=== PATIENT | male | born 1975 | race Caucasian/White ===

== ENCOUNTER 2018-10-02 16:35 | Emergency (ER) | payer SELFPAY ==
[~2018-10-02] VITALS: Ht 180.3 cm; Wt 71.0 kg
[~2018-10-02 16:35] MED LIST: ALBU1.25 NEB; ALBU6.7H IH; AZIT250T6 PO; CLON-276 PO; HYDR-3165 PO; ONDA4TAB10 SL; OXYC10TA PO; PRED20TA PO; VARE1TAB20 PO
[2018-10-02 17:12] VITALS: BP 134/74
--- NOTE | 2018-10-02 18:01 | ED.ADGEN ---
Past History Past Medical History: No Pertinent History, Other Past Surgical History: No Surgical History Smoking: Cigarettes Alcohol Use: Rarely Drug Use: Amphetamine, Heroin, Marijuana, Methamphetamine, Opiates Adult General Chief Complaint Chief Complaint ".. I ve been shooting up heroin.. and I got this infection in my Lt arm... I tried draining it.. but it gotten worse the last three days..." HPI HPI Patient is a 43 year old male who presents with abscess and cellulitis after shooting up heroin. Patient has a 2 x 2 abscess of left antecubital space with surrounding cellulitis 4 x 4 cm with striations of medial side of left arm. Some small adenopathy at antecubital space on left. Patient does not know his last tetanus vaccination. Patient denies any history of immunosuppression or HIV. 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 Patient has had previous polysubstance abuse. No recent travel or specific ill contacts. Patient is right-hand dominant. Distal left hand neurovascular intact. Does have findings of multiple other track acosta scarring from previous IV injections. Review of Systems Review of Systems Constitutional: Denies fever or chills [] Eyes: Denies change in visual acuity, redness, or eye pain [] HENT: Denies nasal congestion or sore throat [] Respiratory: Denies cough or shortness of breath [] Cardiovascular: No additional information not addressed in HPI [] GI: Denies abdominal pain, nausea, vomiting, bloody stools or diarrhea [] : Denies dysuria or hematuria [] Musculoskeletal: Denies back pain or joint pain [] Integument: Denies rash or skin lesions []complaints of left antecubital space cellulitis and abscess Neurologic: Denies headache, focal weakness or sensory changes [] Endocrine: Denies polyuria or polydipsia [] All other systems were reviewed and found to be within normal limits, except as documented in this note. Family History Family History Noncontributory Current Medications Current Medications Current Medications Medications (Trade) Dose Ordered Sig/Mercedes Start Time Stop Time Status Last Admin Dose Admin Ceftriaxone Sodium (Rocephin Im) 1 gm 1X ONCE 10/02/18 18:00 10/02/18 18:01 DC 10/02/18 18:33 1 GM Diphtheria/ Tetanus/Acell Pertussis (Boostrix) 0.5 ml ONCE ONCE 10/02/18 18:00 10/02/18 18:01 DC 10/02/18 18:34 0.5 ML Doxycycline Hyclate (Vibra-Tab) 100 mg 1X ONCE 10/02/18 18:00 10/02/18 18:01 DC 10/02/18 18:33 100 MG Allergies Allergies Allergies Coded Allergies Type Severity Reaction Last Updated Verified Sulfa (Sulfonamide Antibiotics) Allergy Intermediate 08/25/16 Yes hydrocodone Allergy Intermediate gi upset 08/25/16 Yes morphine Allergy Intermediate gi upset 08/25/16 Yes Physical Exam Physical Exam Constitutional: Moderately acute distress, non-toxic appearance. [] HENT: Normocephalic, atraumatic, bilateral external ears normal, oropharynx moist, no oral exudates, nose normal. [] Eyes: PERRLA, EOMI, conjunctiva normal, no discharge. [] Neck: Normal range of motion, no tenderness, supple, no stridor. [] Cardiovascular:Heart rate regular rhythm, no murmur [] Lungs & Thorax: Bilateral breath sounds equal at apex with few scattered wheezes on auscultation [] Abdomen: Bowel sounds normal, soft, no tenderness, no masses, no pulsatile masses. [] Skin: Warm, dry, no erythema, no rash. Findings of left antecubital abscess and cellulitis Back: No tenderness, no CVA tenderness. [] Extremities: No tenderness, no cyanosis, no clubbing, ROM intact, no edema. [] Except left arm tenderness as per history of present illness area cellulitis. Neurologic: Alert and oriented X 3, normal motor function, normal sensory function, no focal deficits noted. [] Psychologic: Affect normal, judgement normal, mood normal. [] Current Patient Data Vital Signs Vital Signs Date Time Temp Pulse Resp B/P (MAP) Pulse Ox O2 Delivery O2 Flow Rate FiO2 10/02/18 17:12 99.0 78 20 96 Room Air Lab Results Laboratory Tests Test 10/02/18 18:12 10/02/18 18:47 White Blood Count 8.6 x10^3/uL (4.0-11.0) Red Blood Count 5.62 x10^6/uL (4.30-5.70) Hemoglobin 16.6 g/dL (13.0-17.5) Hematocrit 48.1 % (39.0-53.0) Mean Corpuscular Volume 86 fL (79-100) Mean Corpuscular Hemoglobin 30 pg (25-35) Mean Corpuscular Hemoglobin Concent 35 g/dL (31-37) Red Cell Distribution Width 14.3 % (11.5-14.5) Platelet Count 277 x10^3/uL (140-400) Neutrophils (%) (Auto) 84 % (31-73) H Lymphocytes (%) (Auto) 7 % (24-48) L Monocytes (%) (Auto) 6 % (0-9) Eosinophils (%) (Auto) 3 % (0-3) Basophils (%) (Auto) 1 % (0-3) Neutrophils # (Auto) 7.2 x10^3uL (1.8-7.7) Lymphocytes # (Auto) 0.6 x10^3/uL (1.0-4.8) L Monocytes # (Auto) 0.6 x10^3/uL (0.0-1.1) Eosinophils # (Auto) 0.2 x10^3/uL (0.0-0.7) Basophils # (Auto) 0.1 x10^3/uL (0.0-0.2) Sodium Level 133 mmol/L (136-145) L Potassium Level 3.4 mmol/L (3.5-5.1) L Chloride Level 95 mmol/L (98-107) L Carbon Dioxide Level 31 mmol/L (21-32) Anion Gap 7 (6-14) Blood Urea Nitrogen 9 mg/dL (8-26) Creatinine 0.8 mg/dL (0.7-1.3) Estimated GFR (Cockcroft-Gault) 106.0 BUN/Creatinine Ratio 11 (6-20) Glucose Level 133 mg/dL (70-99) H Calcium Level 8.1 mg/dL (8.5-10.1) L Total Bilirubin 0.4 mg/dL (0.2-1.0) Aspartate Amino Transferase (AST) 32 U/L (15-37) Alanine Aminotransferase (ALT) 26 U/L (16-63) Alkaline Phosphatase 125 U/L (46-116) H Total Protein 6.9 g/dL (6.4-8.2) Albumin 2.6 g/dL (3.4-5.0) L Albumin/Globulin Ratio 0.6 (1.0-1.7) L EKG EKG [] Radiology/Procedures Radiology/Procedures My interpretation x-ray shows no obvious fracture or dislocation. Does have findings of edema and tissue defect at abscess site.[] Course & Med Decision Making Course & Med Decision Making Pertinent Labs and Imaging studies reviewed. (See chart for details) Procedure note- abscess area prepped with Betadine and incised with 11 blade with return pus. Explored abscess area with Winnie's to break up any loculations . Short 1 inch piece of packing placed in place with dressing. Pt. to keep area clean and dry. May leave current dressing in place today, but if soaks through may replace or re-enforce. Packing must come out within 3 days. Follow-up primary care. Patient given list of referral areas for outpatient drug rehabilitation. Per His request. Patient take doxycycline milligrams twice a day. Patient return if any concerns. Patient encouraged to get follow-up HIV testing and hepatitis testing. If no improvement may require hospital admission for IV antibiotics. [] Final Impression Final Impression 1. Abscess/ Cellulitis[] 2. History of IV drug use Dragon Disclaimer Dragon Disclaimer This electronic medical record was generated, in whole or in part, using a voice recognition dictation system. CASSIUS MCCORMICK MD Oct 02, 2018 18:00
[2018-10-02 18:28] LABS: BASO # 0.1 x10^3/uL (0.0-0.2); BASO % 1 % (0-3); EOS # 0.2 x10^3/uL (0.0-0.7); EOS % 3 % (0-3); HEMATOCRIT 48.1 % (39.0-53.0); HEMOGLOBIN 16.6 g/dL (13.0-17.5); LYMPH # 0.6 x10^3/uL (1.0-4.8); LYMPH % 7 % (24-48); MEAN CORPUSCULAR HEMOGLOBIN 30 pg (25-35); MEAN CORPUSCULAR HGB CONC 35 g/dL (31-37); MEAN CORPUSCULAR VOLUME 86 fL (79-100); MONO # 0.6 x10^3/uL (0.0-1.1); MONO % 6 % (0-9); NEUT # 7.2 x10^3uL (1.8-7.7); NEUT % 84 % (31-73); PLATELET COUNT 277 x10^3/uL (140-400); RED BLOOD COUNT 5.62 x10^6/uL (4.30-5.70); RED CELL DISTRIBUTION WIDTH 14.3 % (11.5-14.5); WHITE BLOOD COUNT 8.6 x10^3/uL (4.0-11.0)
[2018-10-02] MEDS: cefTRIAXone IM 1 GM VIAL IM ONE (18:33)
[2018-10-02] MEDS: DOXYCYCLINE HYCLATE 100 MG TABLET PO ONE (18:33)
[2018-10-02] MEDS: DIPHTH,PERTUSS(ACELL),TET TOX 0.5 ML DISP.SYRIN. VAX IM ONE (18:34)
[2018-10-02] MEDS ORDERED: DOXY100T9 PO (18:44)
[2018-10-02 19:21] LABS: ALBUMIN 2.6 g/dL (3.4-5.0); ALBUMIN/GLOBULIN RATIO 0.6 (1.0-1.7); CALCIUM 8.1 mg/dL (8.5-10.1); CREATININE 0.8 mg/dL (0.7-1.3); POTASSIUM 3.4 mmol/L (3.5-5.1); TOTAL BILIRUBIN 0.4 mg/dL (0.2-1.0); TOTAL PROTEIN 6.9 g/dL (6.4-8.2)
--- NOTE | 2018-10-02 22:05 | RAD ---
3 views left elbow HISTORY: Abscess to left elbow infected heroin injection site AP lateral oblique views The visualized osseous structures appear normal. There is no displacement of the fat pad. IMPRESSION: No bony abnormality identified. Electronically signed by: Zachary Rodriguez III, MD (10/02/2018 10:02 PM) [facility]
== END 2018-10-02 19:05 | disposition home or self-care (01) ==
LOC: ER 16:35
DX: L03.114 Cellulitis of left upper limb (principal); L02.414 Cutaneous abscess of left upper limb; F15.10 Other stimulant abuse, uncomplicated; F14.10 Cocaine abuse, uncomplicated; F11.20 Opioid dependence, uncomplicated; F19.10 Other psychoactive substance abuse, uncomplicated; F17.210 Nicotine dependence, cigarettes, uncomplicated; Z88.2 Allergy status to sulfonamides; Z88.5 Allergy status to narcotic agent
CPT/HCPCS: 10060; 36415; 73080; 80053; 85025; 87040; 90471; 90715; 96372; 99284; J0696

== ENCOUNTER 2018-10-03 05:32 | Inpatient (IN) | payer SELFPAY ==
[~2018-10-03] VITALS: Ht 177.8 cm; Wt 84.4 kg
[~2018-10-03 05:32] MED LIST changes: +DOXY100T9 PO
--- NOTE | 2018-10-03 05:41 | ED.ADGEN ---
Past History Past Medical History: No Pertinent History, Abscess, Bronchitis, Other Past Surgical History: No Surgical History, Other Smoking: Cigarettes Alcohol Use: Rarely Drug Use: Amphetamine, Heroin, Marijuana, Methamphetamine, Opiates Adult General Chief Complaint Chief Complaint ".. Went home from here.. and I just rested.. but I am really short of breath.. this morning...some chest discomfort.. and my Lt arm is more swollen and sore...." HPI HPI Patient is a 43 year old male who presents with above hx and complaints of increase pain Lt. arm cellulitis with chest pain. Pt. seen yesterday and received I and D of Lt.arm abscess. Area of cellulitis has not improved and appears to have increased edema to Lt upper arm. Pt. was noted to have new needle acosta on right arm. Patient denies any new illicit drug use however. Patient does complain of some increased wheezing and shortness of breath. Complaints of some nonspecific central chest pain that is nonradiating. Patient does have increased diaphoresis and findings of fever and chills. Patient does state he's had some increased coughing. Patient does have a history of polysubstance abuse. Has been using IV heroin. Patient Review of Systems Review of Systems Constitutional: History of fever or chills [] Eyes: Denies change in visual acuity, redness, or eye pain [] HENT: Denies nasal congestion or sore throat [] Respiratory: History of cough and wheezing Cardiovascular: No additional information not addressed in HPI [] GI: Denies abdominal pain, nausea, vomiting, bloody stools or diarrhea [] : Denies dysuria or hematuria [] Musculoskeletal: Denies back pain or joint pain [] Integument: Complaints of left arm cellulitis and abscess Neurologic: Denies headache, focal weakness or sensory changes [] Endocrine: Denies polyuria or polydipsia [] All other systems were reviewed and found to be within normal limits, except as documented in this note. Family History Family History Noncontributory Current Medications Current Medications Current Medications Medications (Trade) Dose Ordered Sig/Mercedes Start Time Stop Time Status Last Admin Dose Admin Acetaminophen (Tylenol) 1,000 mg QIDPRN PRN 10/03/18 06:00 Albuterol/ Ipratropium (Duoneb) 3 ml STK-MED ONCE 10/03/18 06:00 10/03/18 06:01 DC Aspirin (Children'S Aspirin) 324 mg 1X ONCE 10/03/18 06:00 10/03/18 06:01 DC 10/03/18 06:14 324 MG Ceftriaxone Sodium 1 gm/ Sodium Chloride 50 ml @ 100 mls/hr 1X ONCE 10/03/18 06:00 10/03/18 06:29 DC 10/03/18 06:46 100 MLS/HR Enoxaparin Sodium (Lovenox 80mg Syringe) 80 mg 1X ONCE 10/03/18 06:00 10/03/18 06:01 DC 10/03/18 06:18 80 MG Lactated Ringer's 1,000 ml @ 160 mls/hr Q6H15M 10/03/18 06:00 10/03/18 06:00 160 MLS/HR Multivitamins/ Minerals 10 ml/ Folic Acid 1 mg/ Thiamine HCl 100 mg/Lactated Ringer's 1,011.2 ml @ 1,000 mls/ hr 1X ONCE 10/03/18 06:00 10/03/18 07:00 DC 10/03/18 06:14 1,000 MLS/HR Ondansetron HCl (Zofran) 4 mg PRN Q4HRS PRN 10/03/18 06:00 10/04/18 05:59 10/03/18 06:14 4 MG Vancomycin HCl (Vanco Per Pharmacy) 1 each PRN DAILY PRN 10/03/18 06:00 10/03/18 06:12 1 EACH Allergies Allergies Allergies Coded Allergies Type Severity Reaction Last Updated Verified Sulfa (Sulfonamide Antibiotics) Allergy Intermediate 08/25/16 Yes hydrocodone Allergy Intermediate gi upset 08/25/16 Yes morphine Allergy Intermediate gi upset 08/25/16 Yes Physical Exam Physical Exam Constitutional: Moderately acute distress, appears to be under the influence of a narcotic . HENT: Normocephalic, atraumatic, bilateral external ears normal, oropharynx moist, no oral exudates, nose normal. [] Eyes: PERRLA, EOMI, conjunctiva normal, no discharge. [] Neck: Normal range of motion, no tenderness, supple, no stridor. [] Cardiovascular: Regular Heart rate regular rhythm, no murmur appreciable Lungs & Thorax: Bilateral breath sounds equal at apex with scattered wheezes on auscultation [] Abdomen: Bowel sounds decreased,, soft, no tenderness, no masses, no pulsatile masses. [] Skin: Left arm is more erythemic and swollen and then yesterday. Packing is still in place from prior incision and drainage. New Needle acosta on right arm Back: No tenderness, no CVA tenderness. [] Extremities: No tenderness, no cyanosis, no clubbing, ROM intact, left arm edema. [] Neurologic: Alert and oriented X 3, normal motor function, normal sensory function, no focal deficits noted. []Except in Lt. arm decreased movement at elbow because of cellulitis and inflammation. No distal sensation loss in fingers. Psychologic: Affect anxious, judgement normal, mood normal. [] Current Patient Data Vital Signs Vital Signs Date Time Temp Pulse Resp B/P (MAP) Pulse Ox O2 Delivery O2 Flow Rate FiO2 10/03/18 05:39 100.8 83 20 97 Room Air Lab Results Laboratory Tests Test 10/03/18 05:57 White Blood Count 9.2 x10^3/uL (4.0-11.0) Red Blood Count 4.58 x10^6/uL (4.30-5.70) Hemoglobin 13.5 g/dL (13.0-17.5) Hematocrit 38.5 % (39.0-53.0) L Mean Corpuscular Volume 84 fL (79-100) Mean Corpuscular Hemoglobin 30 pg (25-35) Mean Corpuscular Hemoglobin Concent 35 g/dL (31-37) Red Cell Distribution Width 14.0 % (11.5-14.5) Platelet Count 271 x10^3/uL (140-400) Neutrophils (%) (Auto) 78 % (31-73) H Lymphocytes (%) (Auto) 9 % (24-48) L Monocytes (%) (Auto) 10 % (0-9) H Eosinophils (%) (Auto) 2 % (0-3) Basophils (%) (Auto) 1 % (0-3) Neutrophils # (Auto) 7.2 x10^3uL (1.8-7.7) Lymphocytes # (Auto) 0.8 x10^3/uL (1.0-4.8) L Monocytes # (Auto) 1.0 x10^3/uL (0.0-1.1) Eosinophils # (Auto) 0.2 x10^3/uL (0.0-0.7) Basophils # (Auto) 0.1 x10^3/uL (0.0-0.2) Segmented Neutrophils % 70 % (35-66) H Band Neutrophils % 7 % (0-9) Lymphocytes % 10 % (24-48) L Monocytes % 11 % (0-10) H Eosinophils % 2 % (0-5) Platelet Estimate Adequate (ADEQUATE) Prothrombin Time 10.8 SEC (9.4-11.4) Prothrombin Time INR 1.1 (0.9-1.1) PTT 34 SEC (23-33) H Sodium Level 132 mmol/L (136-145) L Potassium Level 2.9 mmol/L (3.5-5.1) *L Chloride Level 95 mmol/L (98-107) L Carbon Dioxide Level 27 mmol/L (21-32) Anion Gap 10 (6-14) Blood Urea Nitrogen 7 mg/dL (8-26) L Creatinine 0.8 mg/dL (0.7-1.3) Estimated GFR (Cockcroft-Gault) 106.0 Glucose Level 126 mg/dL (70-99) H Lactic Acid Level 1.3 mmol/L (0.4-2.0) Calcium Level 8.1 mg/dL (8.5-10.1) L Magnesium Level 1.9 mg/dL (1.8-2.4) Total Bilirubin 0.4 mg/dL (0.2-1.0) Direct Bilirubin 0.1 mg/dL (0.0-0.2) Aspartate Amino Transferase (AST) 33 U/L (15-37) Alanine Aminotransferase (ALT) 33 U/L (16-63) Alkaline Phosphatase 161 U/L (46-116) H Creatine Kinase 65 U/L (39-308) Troponin I Quantitative < 0.017 ng/mL (0-0.055) [id number]-Type Natriuretic Peptide 260 pg/mL (0-124) H Total Protein 7.2 g/dL (6.4-8.2) Albumin 2.7 g/dL (3.4-5.0) L Lipase 90 U/L (73-393) EKG EKG My interpretation of EKG shows a sinus rhythm at 76 bpm. No findings of acute morphology. No findings acute STEMI with contralateral changes.[] Radiology/Procedures Radiology/Procedures My interpretation of chest x-ray shows no acute cardiopulmonary findings.[] Course & Med Decision Making Course & Med Decision Making Pertinent Labs and Imaging studies reviewed. (See chart for details) Discussed presentation, testing and treatment plan with Dr. Bedolla. US pending Lt upper arm. Echo ordered. Cardiology consult Dr. Blount [] Final Impression Final Impression 1. Dyspnea 2. Cellulitis and Abscess- I and D yesterday 3. Hx. Polysubstance Abuse- heroin IV use[] 4. Hypokalemia 2.9 5. Malnutrition alb. 2.7 6. Dyspnea 7. Chest pain Dragon Disclaimer Dragon Disclaimer This electronic medical record was generated, in whole or in part, using a voice recognition dictation system. CASSIUS MCCORMICK MD Oct 03, 2018 05:41
[2018-10-03] MEDS ORDERED: ENOXAPARIN ** NOTE DOSE ** SYRINGE SQ ONE (06:00)
[2018-10-03] MEDS ORDERED: MVI, ADULT NO.4 WITH VIT K 10 ML, FOLIC ACID SYRINGE for ER 1 MG, THIAMINE INJ 100 MG i... IV ONE ×4 (06:00)
[2018-10-03] MEDS ORDERED: IV RINGERS SOLUTION,LACTATED 1,000 ML IV SCH (06:00)
[2018-10-03] MEDS ORDERED: IPRATRPIUM/ALBUTEROL 0.5/2.5MG 3 ML NEBU. ONE (06:00)
[2018-10-03] MEDS ORDERED: ONDANSETRON PF 4 MG/2 ML VIAL. IV PRN (06:00)
[2018-10-03] MEDS: IV RINGERS SOLUTION,LACTATED 1,000 ML IV SCH ×2 (06:00→09:24)
[2018-10-03] MEDS ORDERED: ASPIRIN 81 MG TAB.CHEW PO ONE (06:00)
[2018-10-03] MEDS ORDERED: ACETAMINOPHEN 500 MG TABLET PO PRN (06:00)
[2018-10-03] MEDS ORDERED: ACETAMINOPHEN 500 MG TABLET PO ONE (06:00)
[2018-10-03] MEDS ORDERED: IV NORMAL SALINE 50ML 50 ML ONE (06:05)
[2018-10-03] MEDS ORDERED: MVI, ADULT NO.4 WITH VIT K 10 ML VIAL IV ONE (06:06)
[2018-10-03] MEDS ORDERED: cefTRIAXone SODIUM 1 GM VIAL IV ONE (06:06)
[2018-10-03] MEDS ORDERED: FOLIC ACID 5 MG/ML SYRINGE for ER IV ONE (06:06)
[2018-10-03] MEDS ORDERED: THIAMINE 200 MG/2 ML VIAL. IV ONE (06:06)
[2018-10-03] MEDS: IPRATRPIUM/ALBUTEROL 0.5/2.5MG 3 ML NEBU. NEB SCH ×4 (06:10→20:00)
[2018-10-03] MEDS: VANCOMYCIN PER PHARMACY MC PRN (06:12)
[2018-10-03] MEDS ORDERED: ANTI-COAG MONITOR BY PHARMACY. MC PRN (06:15)
--- NOTE | 2018-10-03 06:17 | RAD ---
AP portable chest radiograph 10/03/2018 Clinical History: Chest pain. Two AP erect portable digital radiographs of the chest were obtained. Comparison study is dated 08/16/2016. The cardiac and mediastinal silhouettes are within normal limits in size and configuration. No acute pulmonary infiltrate is seen. No pleural effusion or pneumothorax is noted. The osseous structures are grossly intact. Impression: No acute abnormality is seen. Electronically signed by: Denton Preciado MD (10/03/2018 6:13 AM) [id number]
[2018-10-03 06:24] LABS: BASO # 0.1 x10^3/uL (0.0-0.2); BASO % 1 % (0-3); EOS # 0.2 x10^3/uL (0.0-0.7); EOS % 2 % (0-3); HEMATOCRIT 38.5 % (39.0-53.0); HEMOGLOBIN 13.5 g/dL (13.0-17.5); LYMPH # 0.8 x10^3/uL (1.0-4.8); LYMPH % 9 % (24-48); MEAN CORPUSCULAR HEMOGLOBIN 30 pg (25-35); MEAN CORPUSCULAR HGB CONC 35 g/dL (31-37); MEAN CORPUSCULAR VOLUME 84 fL (79-100); MONO % 10 % (0-9); NEUT # 7.2 x10^3uL (1.8-7.7); NEUT % 78 % (31-73); PLATELET COUNT 271 x10^3/uL (140-400); RED BLOOD COUNT 4.58 x10^6/uL (4.30-5.70); WHITE BLOOD COUNT 9.2 x10^3/uL (4.0-11.0)
[2018-10-03] MEDS ORDERED: VANCOMYCIN 1.75 GM in IV NORMAL SALINE 500ML 500 ML IV ONE (06:30)
[2018-10-03 06:37] LABS: ALBUMIN 2.7 g/dL (3.4-5.0); CALCIUM 8.1 mg/dL (8.5-10.1); CREATININE 0.8 mg/dL (0.7-1.3); DIRECT BILIRUBIN 0.1 mg/dL (0.0-0.2); MAGNESIUM 1.9 mg/dL (1.8-2.4); TOTAL BILIRUBIN 0.4 mg/dL (0.2-1.0); TOTAL PROTEIN 7.2 g/dL (6.4-8.2)
[2018-10-03 06:39] LABS: POTASSIUM 2.9 mmol/L (3.5-5.1)
[2018-10-03] MEDS ORDERED: POTASSIUM CHLORIDE 20 MEQ/15 ML ORAL LIQUID. PO ONE (07:00)
--- NOTE | 2018-10-03 07:04 | EKG ---
[address] [address] Test Date: 2018-10-03 Test Time: 06:06:42 Pat Name: KENNY OCAMPO Department: Room: Gender: Trade Embalmer: : [id number] Requested By: CASSIUS MCCORMICK Order Number: [id number] Reading MD: Randy Guaman Measurements Intervals [place] Rate: 76 P: 46 CA: 158 QRS: 54 QRSD: 92 T: 42 QT: 382 QTc: 434 Interpretive Statements SINUS RHYTHM NORMAL ECG RI6.01 Unconfirmed report Compared to ECG 08/25/2016 08:54:43 No significant changes Electronically Signed On 10-04-2018 9:35:18 [employer] by Randy Guaman
[2018-10-03] MEDS ORDERED: IV NORMAL SALINE 500ML 500 ML ONE (07:17)
[2018-10-03] MEDS ORDERED: VANCOMYCIN 1 GM VIAL. ONE (07:18)
[2018-10-03 07:37] LABS: BILIRUBIN,URINE NEG (NEG); CLARITY,URINE CLEAR; COLOR,URINE AMBER; GLUCOSE,URINE NEG (NEG)
[2018-10-03 07:38] LABS: BACTERIA,URINE 0 /HPF (0-FEW); BARBITURATES NEG (NEG); BENZODIAZEPINES NEG (NEG); CANNABINOIDS NEG (NEG); COCAINE NEG (NEG); METHADONE NEG (NEG); NITRITE,URINE NEG (NEG); OPIATES POS (NEG); PHENCYCLIDINE NEG (NEG); RBC,URINE 0 /HPF (0-2); SQUAMOUS EPITHELIAL CELL,UR OCC /LPF; UROBILINOGEN,URINE 1 mg/dL (0.2 mg/dL); WBC,URINE 0 /HPF (0-4)
[2018-10-03 07:41] LABS: AMPHETAMINE/METHAMPHETAMINE NEG (NEG)
[2018-10-03 08:11] LABS: % BANDS 7 % (0-9); % EOS 2 % (0-5); % LYMPHS 10 % (24-48); % MONOS 11 % (0-10); % SEGS 70 % (35-66); PLT ESTIMATE ADEQUATE (ADEQUATE)
[2018-10-03 08:18] VITALS: BP 119/74
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
[2018-10-03 10:57] VITALS: BP 103/63
[2018-10-03] MEDS ORDERED: IOHEXOL 300 MG/ML 50 ML VIAL. IV ONE (11:00)
[2018-10-03] MEDS: POTASSIUM CL 40MEQ IN 0.9%NACL 1,000 ML IV SCH ×2 (11:00→21:32)
[2018-10-03] MEDS ORDERED: IOHEXOL 300 MG/ML 75 ML VIAL. IV ONE (11:00)
--- NOTE | 2018-10-03 11:14 | HP ---
ADMIT DATE: 10/03/2018 HISTORY OF PRESENT ILLNESS: The patient is a 43-year-old male patient who came to the Emergency Room complaining of shortness of breath and chest discomfort and pain and swelling in his left arm. He apparently was seen yesterday and has had incision and drainage of left arm abscess. The area of cellulitis has not improved and in fact the edema of the left arm has increased. He was noted to have a new needle acosta on his right arm. He denied any illicit drug use. However, the patient does complain of some increased wheezing and shortness of breath. Complained of some nonspecific central chest pain and he has increased diaphoresis and finding of fever and chills. The patient does state that he had some increased coughing. He apparently has history of polysubstance abuse and has been using IV heroin. He was evaluated in the Emergency Room again this morning. His lab work showed his white cell count to be 9000. His chemistry showed that he has hypokalemia and D-dimer was high at 2.7. His urinalysis was essentially unremarkable and toxic screen was positive for opiates, negative for other medication. He was admitted with cellulitis of the left upper extremity and was started on IV Zosyn and vancomycin. Given his elevated D-dimer, he was started on Lovenox 1 mg per kg twice a day. PAST MEDICAL HISTORY: Significant for COPD and history of pneumonia in 2013. FAMILY HISTORY: Unremarkable. SOCIAL HISTORY: He apparently continued to smoke cigarettes. He smokes about one half pack a day. He is unemployed. He is currently not working. REVIEW OF SYSTEMS: As per history of present illness. PHYSICAL EXAMINATION: GENERAL: On arrival to the Emergency Room, he was slightly tachypneic, lethargic, pale, but no jaundice, cyanosis, or thyromegaly. No jugular venous distension. No limb edema. VITAL SIGNS: His heart rate was 83, blood pressure was 114/55, temperature was 100.8, respiratory rate 20, and oxygen saturation was 97%. HEAD, EYES, EARS, NOSE, AND THORAT: Showed normocephalic, atraumatic. NECK: Supple. HEART: Showed normal first and second heart sounds. No gallop, rub, or murmur. CHEST: Clear to auscultation. No crepitation or rhonchi. ABDOMEN: Distended, soft, nontender. No guarding or rigidity. No organomegaly. All hernial orifice intact. Bowel sounds normal. NEUROLOGIC: He is lethargic, arousable. Cranial nerves intact. He moves extremities without difficulty. His left upper extremity is markedly swollen, although there is no evidence of erythema. He has an abscess in the left anterior cubital fossa that was drained and was packed with iodoform gauze. LABORATORY DATA: His lab work showed a white cell count 9200, hemoglobin 13.5, hematocrit 38.5, MCV 84, and platelet count 271,000 with a normal manual differential. Serum sodium was 132, potassium 2.9, chloride 95, bicarbonate 27, anion gap of 10, BUN 7, creatinine 0.8, estimated GFR was 160 mL per minute, his glucose 126. Lactic acid was 1.3, calcium was 8.1, magnesium was 1.9. Total bilirubin, AST, ALT normal. Alkaline phosphatase is slightly elevated. His CK was 65. Beta natriuretic peptide was 260. Total protein was 7.2, albumin was 2.7. His prothrombin time was 10.8, INR 1.1, aPTT was 34 and D-dimer was 2.7. His toxic screen was positive for opiates; however, urinalysis was unremarkable. His chest x-ray showed that the cardiac and mediastinal silhouette are within normal limits in size and configuration. No acute pulmonary infiltrates are seen. No pleural effusion or pneumothorax noted. The osseous structures are greatly intact. SUMMARY: In summary, this is a 43-year-old male patient who is a polysubstance abuser, injecting heroin and who came in with an abscess in the left anterior cubital fossa that was drained yesterday. He has marked left upper extremity. We will continue with IV antibiotic in the form of vancomycin and Zosyn. His D-dimer was high, so we will arrange for him to have Doppler ultrasound of his left upper extremity as well as CT angio of the chest. He has low potassium. We will need to replenish his potassium. We will follow his labs this afternoon on a daily basis. ROBBY ART MD DR: NIRAV/domenica JOB#: [id number] / [id number]
[2018-10-03] MEDS: HYDROmorphone PF 2 MG/ML VIAL IV PRN ×4 (11:57→21:30)
--- NOTE | 2018-10-03 12:06 | CARD ---
MR#: [id number] Date of Study: 10/03/2018 Ordering Physician: CASSIUS NOBLE, Referring Physician: ROBBY ART, Tech: Francisca Keenan [facility] APPROVED REPORT EXAM: Two-dimensional and M-mode echocardiogram with Doppler and color Doppler. Other Information Quality : GoodHR: 66bpm Rhythm : NSR INDICATION Chest Pain 2D DIMENSIONS Left Atrium(2D)3.3 (1.6-4.0cm)IVSd0.7 (0.7-1.1cm) Aortic Root(2D)2.9 (2.0-3.7cm)LVDd5.3 (3.9-5.9cm) LVOT Diameter2.0 (1.8-2.4cm)PWd0.7 (0.7-1.1cm) LVDs3.0 (2.5-4.0cm)FS (%) 43.7 % SV100.4 ml M-Mode DIMENSIONS Left Atrium(MM)3.32 (2.5-4.0cm)Aortic Root2.70 (2.2-3.7cm) Aortic Valve AoV Peak Fahad.177.0cm/sAoV VTI37.3cm AO Peak GR.12.5mmHgLVOT Peak Fahad.110.0cm/s LVOT VTI 24.91cmAO Mean GR.7mmHg LELAND (VMAX)1.35ol9LKV (VTI)2.10cm2 Mitral Valve MV E Khmhijal451.6cm/sMV DECEL BKVD125jy MV A Xrpgszya89.3cm/sE/A Ratio2.0 MV A Ctyrprww36ly Pulmonary Valve PV Peak Rupxhxnp098.2cm/sPV Peak Grad.8mmHg Tricuspid Valve TR P. Rbtnrstv872yw/sRAP CMCEVREH5uxZn TR Peak Gr.13lzNcHLGZ29jiVo Pulmonary Vein S1 Hzsktryg39.3cm/sD2 Ipwovkun62.7cm/s LEFT VENTRICLE The left ventricle is normal size. There is normal left ventricular wall thickness. The left ventricu lar systolic function is normal and the ejection fraction is within normal range. The Ejection Fracti on is 60-65%. There is normal LV segmental wall motion. The left ventricular diastolic function and f illing is normal for age. RIGHT VENTRICLE The right ventricle is normal size. There is normal right ventricular wall thickness. The right ventr icular systolic function is normal. ATRIA The left atrium size is normal. The right atrium size is normal. The interatrial septum is intact wit h no evidence for an atrial septal defect or patent foramen ovale as noted on 2-D or Doppler imaging. AORTIC VALVE The aortic valve is normal in structure and function. The aortic valve is trileaflet. Doppler and Col or Flow revealed no significant aortic regurgitation. There is no significant aortic valvular stenosi s. There is no aortic valvular vegetation. MITRAL VALVE The mitral valve is normal in structure and function. There is no evidence of mitral valve prolapse. There is no mitral valve stenosis. Doppler and Color Flow revealed no mitral valve regurgitation. TRICUSPID VALVE The tricuspid valve is normal in structure and function. Doppler and Color Flow revealed trace tricus pid regurgitation. The PA pressure was estimated at 27 mmHg. There is no tricuspid valve prolapse or vegetation. There is no tricuspid valve stenosis. PULMONIC VALVE The pulmonary valve is normal in structure and function. Doppler and Color Flow revealed no pulmonic valvular regurgitation. There is no pulmonic valvular stenosis. GREAT VESSELS The aortic root is normal in size. The ascending aorta is normal in size. PERICARDIAL EFFUSION There is no evidence of significant pericardial effusion. Critical Notification Critical Value: No <Conclusion> The left ventricle is normal size. The left ventricular systolic function is normal and the ejection fraction is within normal range. The Ejection Fraction is 60-65%. There is no significant aortic valvular stenosis. Doppler and Color Flow revealed no significant aortic regurgitation. Doppler and Color Flow revealed no mitral valve regurgitation. Doppler and Color Flow revealed trace tricuspid regurgitation. The PA pressure was estimated at 27 mmHg. Signed by : Randy Guaman MD Electronically Approved : 10/03/2018 12:05:03
[2018-10-03 12:40] LABS: CALCIUM 7.9 mg/dL (8.5-10.1); CREATININE 0.7 mg/dL (0.7-1.3); GFR 123.7; POTASSIUM 3.4 mmol/L (3.5-5.1)
--- NOTE | 2018-10-03 14:24 | RAD ---
CTA of the chest with contrast, 10/03/2018: HISTORY: Elevated d-dimer, left arm swelling, chest pain Multidetector CT imaging was performed following an IV bolus injection of iodinated contrast material. Multiplanar reconstructions were produced including coronal and sagittal MIP images. The central pulmonary arteries are well opacified and no filling defects are seen to suggest pulmonary emboli. Some of the smaller pulmonary arteries are less well opacified due to technical factors. The thoracic aorta is of normal caliber. No mediastinal adenopathy is evident. There are hilar lymph nodes of borderline size. There is a 4 cm peripheral parenchymal opacity in the posterior lateral aspect of the left lower lobe. It demonstrates internal gas collections compatible with cavitation. Its margins are irregular. There are mild adjacent streaky and groundglass opacities. Cavitary pneumonia is suspected. No significant left upper lobe or right lung pulmonary infiltrate or mass is evident. No pleural fluid is seen. The spleen is at the upper limits of normal in size. IMPRESSION: 1. No CT evidence of central pulmonary emboli. 2. Cavitary lesion in the left lower lobe with mild adjacent pulmonary infiltrate. Cavitary pneumonia is suspected. A neoplastic etiology is less likely. PQRS Compliance Statement: One or more of the following individualized dose reduction techniques were utilized for this examination: 1. Automated exposure control 2. Adjustment of the mA and/or kV according to patient size 3. Use of iterative reconstruction technique Electronically signed by: Allen Meade MD (10/03/2018 2:21 PM) [facility]
[2018-10-03] MEDS: VANCOMYCIN 1 GM in IV NORMAL SALINE 250ML 250 ML IV SCH ×2 (15:29→21:31)
[2018-10-03 15:54] VITALS: BP 121/78
--- NOTE | 2018-10-03 16:53 | RAD ---
EXAM: Bilateral lower extremity venous Doppler sonogram. HISTORY: Pain and swelling. TECHNIQUE: Clark scale and color Doppler sonographic evaluation of the bilateral lower extremity veins with spectral waveform analysis was performed. FINDINGS: There is normal color flow, normal compressibility and there are normal spectral waveforms in the common femoral, superficial femoral, popliteal, posterior tibial and greater saphenous veins. IMPRESSION: No Doppler evidence of lower extremity deep venous thrombosis. Electronically signed by: Yuly Laughlin MD (10/03/2018 4:50 PM) [id number]
--- NOTE | 2018-10-03 16:53 | RAD ---
EXAM: Left upper extremity venous Doppler sonogram. HISTORY: Swelling and pain. TECHNIQUE: Clark scale and color Doppler sonographic evaluation of the left upper extremity veins with spectral waveform analysis was performed. FINDINGS: There is occlusive thrombus within the mid and distal left basilic vein. There is normal color flow, normal compressibility and there are normal spectral waveforms in the common remainder of the left upper extremity veins. IMPRESSION: Left mid and distal basilic venous thrombosis. Electronically signed by: Yuly Laughlin MD (10/03/2018 4:50 PM) [id number]
[2018-10-03] MEDS: NICOTINE 21MG PATCH. TD SCH (17:25)
[2018-10-03 19:01] VITALS: BP 127/71
[2018-10-03 19:49] LABS: CREATININE 0.8 mg/dL (0.7-1.3); POTASSIUM 3.5 mmol/L (3.5-5.1)
[2018-10-03] MEDS: LACTOBACILLUS RHAMNOSUS GG 1 CAPSULE. PO SCH (21:30)
[2018-10-03] MEDS: ENOXAPARIN ** NOTE DOSE ** SYRINGE SQ SCH (21:31)
[2018-10-03 23:10] VITALS: BP 125/76
[2018-10-04] MEDS: HYDROmorphone PF 2 MG/ML VIAL IV PRN ×4 (00:24→11:02)
[2018-10-04 05:41] VITALS: BP 133/81
[2018-10-04] MEDS: IPRATRPIUM/ALBUTEROL 0.5/2.5MG 3 ML NEBU. NEB SCH ×2 (05:48→10:51)
[2018-10-04 07:03] LABS: BASO # 0.1 x10^3/uL (0.0-0.2); BASO % 1 % (0-3); CALCIUM 7.7 mg/dL (8.5-10.1); CREATININE 0.6 mg/dL (0.7-1.3); EOS # 0.1 x10^3/uL (0.0-0.7); EOS % 1 % (0-3); GFR 147.8; HEMATOCRIT 35.4 % (39.0-53.0); HEMOGLOBIN 11.7 g/dL (13.0-17.5); LYMPH # 0.8 x10^3/uL (1.0-4.8); LYMPH % 9 % (24-48); MEAN CORPUSCULAR HEMOGLOBIN 28 pg (25-35); MEAN CORPUSCULAR HGB CONC 33 g/dL (31-37); MEAN CORPUSCULAR VOLUME 86 fL (79-100); MONO # 1.2 x10^3/uL (0.0-1.1); MONO % 13 % (0-9); NEUT % 76 % (31-73); PLATELET COUNT 230 x10^3/uL (140-400); POTASSIUM 3.9 mmol/L (3.5-5.1); RED BLOOD COUNT 4.13 x10^6/uL (4.30-5.70); RED CELL DISTRIBUTION WIDTH 14.6 % (11.5-14.5); WHITE BLOOD COUNT 9.2 x10^3/uL (4.0-11.0)
[2018-10-04] MEDS ORDERED: VANCOMYCIN 1.25 GM in IV NORMAL SALINE 250ML 250 ML IV SCH (08:00)
[2018-10-04] MEDS ORDERED: VANCOMYCIN 1.5 GM in IV NORMAL SALINE 500ML 500 ML IV SCH (08:00)
[2018-10-04] MEDS: NICOTINE 21MG PATCH. TD SCH (08:01)
[2018-10-04] MEDS: ENOXAPARIN ** NOTE DOSE ** SYRINGE SQ SCH (08:02)
[2018-10-04] MEDS: LACTOBACILLUS RHAMNOSUS GG 1 CAPSULE. PO SCH (08:02)
[2018-10-04] MEDS: VANCOMYCIN PER PHARMACY MC PRN (08:05)
[2018-10-04] MEDS ORDERED: ENOXAPARIN 40 MG/0.4 ML SYRINGE. SQ SCH (09:30)
[2018-10-04 11:37] LABS: BGAS PH 7.47 (7.35-7.46)
--- NOTE | 2018-10-04 12:11 | RAD ---
Portable chest, 10/04/2018: HISTORY: Shortness of breath Comparison is made to a study from 10/03/2018. The heart size and pulmonary vascularity are normal. Hazy infiltrate is now evident in the left base with obscuration of the hemidiaphragm. An apparent cavitary component seen on yesterday's CT study is not visible on this portable radiograph. The right lung remains clear. IMPRESSION: Worsening left basilar infiltrate compatible with pneumonia. Electronically signed by: Allen Meade MD (10/04/2018 12:07 PM) [facility]
[2018-10-04 13:00] VITALS: BP 122/71
--- NOTE | 2018-10-04 13:28 | DS ---
DATE OF DISCHARGE: 10/04/2018 HISTORY OF PRESENT ILLNESS: The patient is a 43-year-old male patient, a known drug addict, who came to the Emergency Room complaining of shortness of breath and chest discomfort and swelling of his left arm. He apparently was seen day before admission in the Emergency Room and was found to have left antecubital fossa abscess that was incised and drained. There area of cellulitis has not improved and in fact the edema of the left arm has increased. He was noted to have new needle acosta in his right arm; however, he denied any illicit drug use. However, the patient does complain of some increased wheezing and shortness of breath, complained of some nonspecific central chest pain and he has increased diaphoresis and finding of fever and chills. The patient does state that he has some increased coughing. He apparently has history of polysubstance abuse and has been using IV heroin. He was evaluated in the Emergency Room. LABORATORY DATA: His lab work showed that his white cell count was 9000. His chemistry showed he has hypokalemia. D-dimer was high at 2.7. His urinalysis was essentially unremarkable and tox screen was positive for opiates, negative for other medications. HOSPITAL COURSE: He was admitted with cellulitis of his left upper extremity and was started on IV Rocephin and vancomycin. Given his elevated D-dimer, he was started also on Lovenox 1 mg/kg twice a day. We did actually after lots of trial patient manage to have had bilateral upper and lower extremities venous Doppler ultrasounds, which showed that there are no DVTs in his lower extremity and there is only a small superficial thrombophlebitis in his left mid and distal basilic venous system. He has had a CT angio of the chest, which basically showed that the central pulmonary arteries are well opacified with no filling defects are seen to suggest pulmonary emboli. Some of the smaller pulmonary arteries are less well opacified due to technical factors. The thoracic aorta is of normal caliber. No mediastinal adenopathy is evident. There are hilar nodes of borderline size. There is 4 cm peripheral parenchymal opacity in the posterolateral aspect of the left lower lobe. It demonstrates internal gas collection compatible with cavitation. Its margins are irregular. There are mild adjacent streaky and ground glass opacities. Cavitary pneumonia is suspected. No significant left upper lobe or right lung pulmonary infiltrate or mass is evident. No pleural fluid is seen. The spleen is the upper limit of normal in size and the impression is that the patient has no CT evidence of central pulmonary emboli, cavitary lesion in the left lower lobe with mild adjacent pulmonary infiltrate, cavitary pneumonia is suspected, neoplastic etiology is less likely. He was on IV antibiotic and he was doing well yesterday. This morning, he started complaining more of shortness of breath and he was clearly tachypneic. PHYSICAL EXAMINATION: GENERAL: There is no pallor, jaundice or cyanosis. No lymphadenopathy, no thyromegaly. No jugular venous distention. No lower limb edema. VITAL SIGNS: His heart rate this morning was 71, blood pressure was 133/81, temperature was 98.3, respiratory rate was 24, and oxygen saturation was 96% on room air. HEAD, EYES, EARS, NOSE AND THROAT: Showed normocephalic, atraumatic. NECK: Supple. HEART: Showed normal first and second heart sounds with no gallop, rub, or murmur. CHEST: Showed central trachea, equal bilateral expansion, air entry, vesicular sounds with scattered rhonchi on both sides bilaterally, has few crepitation mostly in the left side posteriorly. ABDOMEN: Scaphoid, soft, nontender. No guarding or rigidity. No organomegaly. Hernial orifice intact. Bowel sounds normal. NEUROLOGIC: He was awake, alert, responding appropriately. All cranial nerves intact. He moves extremities without difficulty. His intake over the last 24 hours was 2884, output was 800. His lab work as of this morning showed a white cell count of 9,200, hemoglobin 11.7, hematocrit 35, MCV 86 and platelet count 230,000. Serum sodium was 139, potassium 3.9, chloride 103, bicarbonate 26, anion gap of 10, BUN 6, creatinine 0.6, estimated GFR was 147 mL per minute. His glucose was 112, calcium was 7.7. His prothrombin time was 10.8, INR 1.1, aPTT was 34, and D-dimer was 2.7. Given the patient's worsening respiratory status and the fact that he is a drug addict and he might have infective endocarditis, a decision was made to transfer him to ICU of [facility] to consult the staff internist office based only, chief business officer, cardiothoracic surgeon, and infectious disease specialist. FINAL TRANSFER DIAGNOSES: Left upper extremity cellulitis, cavitary pneumonia in the left lower lobe, questionable infective endocarditis, drug abuse, and chronic obstructive pulmonary disease. ROBBY ART MD DR: NIRAV/domenica JOB#: [id number] / [id number]
[2018-10-04] MEDS ORDERED: ENOXAPARIN ** NOTE DOSE ** SYRINGE SQ SCH (21:00)
== END 2018-10-04 13:10 | disposition short-term general hospital (02) | DRG 602 ==
LOC: ER 05:32 → 1 SOUTH 06:00
PROVIDERS: ADMIT Internal Medicine; ATTEND Internal Medicine
DX: L03.114 Cellulitis of left upper limb (principal); J18.8 Other pneumonia, unspecified organism; J44.0 Chronic obstructive pulmonary disease with (acute) lower respiratory infection; E46 Unspecified protein-calorie malnutrition; R07.89 Other chest pain; E87.6 Hypokalemia; L02.414 Cutaneous abscess of left upper limb; R79.1 Abnormal coagulation profile; F17.210 Nicotine dependence, cigarettes, uncomplicated; K21.9 Gastro-esophageal reflux disease without esophagitis; Z79.899 Other long term (current) drug therapy; Z82.49 Family history of ischemic heart disease and other diseases of the circulatory system; Z68.26 Body mass index [BMI] 26.0-26.9, adult; Z87.01 Personal history of pneumonia (recurrent); Z90.81 Acquired absence of spleen; Z88.5 Allergy status to narcotic agent; Z88.2 Allergy status to sulfonamides
CPT/HCPCS: 36415; 71045; 71275; 80048; 80061; 80076; 80202; 80307; 81001; 82550; 82803; 83605; 83690; 83735; 83880; 84443; 84484; 85007; 85025; 85379; 85610; 85730; 87040; 87070; 93005; 93306; 93970; 93971; 94640; J0696; J1170; J1650; J2405; J3010; J3370; J7040; J7050; J7120; J7620; Q9967

== ENCOUNTER 2019-02-28 05:25 | Emergency (ER) | payer SELFPAY ==
[~2019-02-28] VITALS: Ht 177.8 cm; Wt 77.6 kg
[~2019-02-28 05:25] MED LIST changes: +ALBU2.5V8 IH; -ALBU6.7H IH
--- NOTE | 2019-02-28 05:27 | ED.ADGEN ---
Past History Past Medical History: No Pertinent History, Abscess, Bronchitis, Other (CASSIUS MCCORMICK MD) Past Medical History Hx. 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 the last 3 days..It.. hurts down low ..here in my low back...I can't even straighten my legs without making her back hurt more... The pain runs into my buttock and down the back, legs...." (CASSIUS MCCORMICK MD) [facility] HPI Patient is a 43 year old male who presents with above hx and back pain 3 days. Patient denies past back injury or back complaints. Patient denies any history of fever or chills. Patient denies any history of cancer. Patient does have a history of staphylococcal infections with IV drug use. Patient has extensive abscess and cellulitis of left arm requiring surgery in this past October. Patient denies any history of HIV or skin immunosuppression. Patient localizes pain on exam and sacral lumbar area that radiates along his sciatic nerves. Patient does continue to smoke. (CASSIUS MCCORMICK MD) Review of Systems Review of Systems Constitutional: Denies fever or chills [] Eyes: Denies change in visual acuity, redness, or eye pain [] HENT: Denies nasal congestion or sore throat [] Respiratory: Denies cough or shortness of breath [] Cardiovascular: No additional information not addressed in HPI [] GI: Denies abdominal pain, nausea, vomiting, bloody stools or diarrhea [] : Denies dysuria or hematuria [] Musculoskeletal: Complaints of bilateral sciatic back pain Integument: Denies rash or skin lesions [] Neurologic: Denies headache, focal weakness or sensory changes [] Endocrine: Denies polyuria or polydipsia [] All other systems were reviewed and found to be within normal limits, except as documented in this note. (CASSIUS MCCORMICK MD) Family History Family History Noncontributory (CASSIUS MCCORMICK MD) Current Medications Current Medications Current Medications Medications (Trade) Dose Ordered Sig/Mercedes Start Time Stop Time Status Last Admin Dose Admin Ceftriaxone Sodium 2 gm/ Sodium Chloride 100 ml @ 200 mls/hr 1X ONCE 02/28/19 08:15 02/28/19 08:44 DC 02/28/19 08:35 200 MLS/HR Ceftriaxone Sodium (Rocephin) 2 gm STK-MED ONCE 02/28/19 08:22 02/28/19 08:23 DC Fentanyl Citrate (Fentanyl 2ml Vial) 50 mcg 1X ONCE 02/28/19 09:00 02/28/19 09:07 DC 02/28/19 09:10 50 MCG Ketorolac Tromethamine (Toradol Im) 60 mg 1X ONCE 02/28/19 06:15 02/28/19 06:16 DC 02/28/19 06:26 60 MG Lactated Ringer's 1,000 ml @ 1,000 mls/hr Q1H 02/28/19 06:00 02/28/19 07:00 DC 02/28/19 06:25 1,000 MLS/HR Methylprednisolone Acetate (DEPO-Medrol IM) 40 mg 1X ONCE 02/28/19 06:15 02/28/19 06:16 DC 02/28/19 06:25 40 MG Orphenadrine Citrate (Norflex) 60 mg 1X ONCE 02/28/19 06:15 02/28/19 06:16 DC 02/28/19 06:27 60 MG Sodium Chloride 500 ml @ 0 mls/hr 1X ONCE 02/28/19 09:00 02/28/19 09:07 DC 02/28/19 09:13 500 MLS/HR Vancomycin HCl (Vanco Per Pharmacy) 1 each 1X STAT 02/28/19 08:08 02/28/19 08:16 DC Vancomycin HCl (Vancomycin) 1 gm STK-MED ONCE 02/28/19 08:24 02/28/19 08:25 DC Vancomycin HCl 2 gm/Sodium Chloride 500 ml @ 250 mls/hr 1X ONCE 02/28/19 08:30 02/28/19 10:29 02/28/19 09:17 250 MLS/HR (DOLORES HICKS DO) Allergies Allergies Allergies Coded Allergies Type Severity Reaction Last Updated Verified Sulfa (Sulfonamide Antibiotics) Allergy Intermediate 08/25/16 Yes hydrocodone Allergy Intermediate gi upset 08/25/16 Yes morphine Allergy Intermediate gi upset 08/25/16 Yes I S O L A T I O N *CONTACT* Allergy Unknown 10/09/18 Yes [facility] Physical Exam Physical Exam Constitutional: in acute distress, non-toxic appearance. [] HENT: Normocephalic, atraumatic, bilateral external ears normal, oropharynx moist, no oral exudates, nose normal. Poor dentition Eyes: PERRLA, EOMI, conjunctiva normal, no discharge. [] Neck: Normal range of motion, no tenderness, supple, no stridor. [] Cardiovascular: Tachycardia Heart rate regular rhythm, no murmur [] Lungs & Thorax: Bilateral breath sounds equal at apexes scattered wheezes on auscultation [] Abdomen: Bowel sounds normal, soft, no tenderness, no masses, no pulsatile masses. [] Skin: Warm, dry, no erythema, no rash. [] Back: Sacral tenderness, lumbar muscle spasms, no CVA tenderness. [] Extremities: No tenderness, no cyanosis, no clubbing, ROM intact, no edema. [] DTRs +2 at patella and Achilles. Sciatic pain with straight leg lift. Old surgery scar left arm Neurologic: Alert and oriented X 3, normal motor function, normal sensory function, no focal deficits noted. [] Psychologic: Affect anxious, judgement normal, mood normal. [] (CASSIUS MCCORMICK MD) Current Patient Data Vital Signs Vital Signs Date Time Temp Pulse Resp B/P (MAP) Pulse Ox O2 Delivery O2 Flow Rate FiO2 02/28/19 09:18 68 16 157/69 (98) 97 02/28/19 07:10 Room Air 02/28/19 05:48 98.4 [facility] Lab Results Laboratory Tests Test 02/28/19 06:16 White Blood Count 10.0 x10^3/uL (4.0-11.0) Red Blood Count 5.10 x10^6/uL (4.30-5.70) Hemoglobin 15.4 g/dL (13.0-17.5) Hematocrit 44.6 % (39.0-53.0) Mean Corpuscular Volume 88 fL (79-100) Mean Corpuscular Hemoglobin 30 pg (25-35) Mean Corpuscular Hemoglobin Concent 35 g/dL (31-37) Red Cell Distribution Width 13.8 % (11.5-14.5) Platelet Count 158 x10^3/uL (140-400) Neutrophils (%) (Auto) 81 % (31-73) H Lymphocytes (%) (Auto) 5 % (24-48) L Monocytes (%) (Auto) 13 % (0-9) H Eosinophils (%) (Auto) 0 % (0-3) Basophils (%) (Auto) 1 % (0-3) Neutrophils # (Auto) 8.1 x10^3uL (1.8-7.7) H Lymphocytes # (Auto) 0.5 x10^3/uL (1.0-4.8) L Monocytes # (Auto) 1.3 x10^3/uL (0.0-1.1) H Eosinophils # (Auto) 0.0 x10^3/uL (0.0-0.7) Basophils # (Auto) 0.0 x10^3/uL (0.0-0.2) Erythrocyte Sedimentation Rate 59 (0-15) H Prothrombin Time 10.2 SEC (9.4-11.4) Prothrombin Time INR 1.0 (0.9-1.1) PTT 32 SEC (23-33) Sodium Level 135 mmol/L (136-145) L Potassium Level 3.5 mmol/L (3.5-5.1) Chloride Level 98 mmol/L (98-107) Carbon Dioxide Level 27 mmol/L (21-32) Anion Gap 10 (6-14) Blood Urea Nitrogen 16 mg/dL (8-26) Creatinine 1.0 mg/dL (0.7-1.3) Estimated GFR (Cockcroft-Gault) 81.9 Glucose Level 115 mg/dL (70-99) H Calcium Level 9.3 mg/dL (8.5-10.1) Magnesium Level 2.1 mg/dL (1.8-2.4) Total Bilirubin 0.8 mg/dL (0.2-1.0) Direct Bilirubin 0.4 mg/dL (0.0-0.2) H Aspartate Amino Transferase (AST) 125 U/L (15-37) H Alanine Aminotransferase (ALT) 90 U/L (16-63) H Alkaline Phosphatase 195 U/L (46-116) H Creatine Kinase 34 U/L (39-308) L Troponin I Quantitative < 0.017 ng/mL (0-0.055) Total Protein 8.2 g/dL (6.4-8.2) Albumin 3.2 g/dL (3.4-5.0) L Lipase 78 U/L (73-393) (EIDENBERG,DOLORES DO) Lab Results Laboratory Tests Test 02/28/19 06:16 02/28/19 10:33 White Blood Count 10.0 x10^3/uL (4.0-11.0) Red Blood Count 5.10 x10^6/uL (4.30-5.70) Hemoglobin 15.4 g/dL (13.0-17.5) Hematocrit 44.6 % (39.0-53.0) Mean Corpuscular Volume 88 fL (79-100) Mean Corpuscular Hemoglobin 30 pg (25-35) Mean Corpuscular Hemoglobin Concent 35 g/dL (31-37) Red Cell Distribution Width 13.8 % (11.5-14.5) Platelet Count 158 x10^3/uL (140-400) Neutrophils (%) (Auto) 81 % (31-73) H Lymphocytes (%) (Auto) 5 % (24-48) L Monocytes (%) (Auto) 13 % (0-9) H Eosinophils (%) (Auto) 0 % (0-3) Basophils (%) (Auto) 1 % (0-3) Neutrophils # (Auto) 8.1 x10^3uL (1.8-7.7) H Lymphocytes # (Auto) 0.5 x10^3/uL (1.0-4.8) L Monocytes # (Auto) 1.3 x10^3/uL (0.0-1.1) H Eosinophils # (Auto) 0.0 x10^3/uL (0.0-0.7) Basophils # (Auto) 0.0 x10^3/uL (0.0-0.2) Erythrocyte Sedimentation Rate 59 (0-15) H Prothrombin Time 10.2 SEC (9.4-11.4) Prothrombin Time INR 1.0 (0.9-1.1) PTT 32 SEC (23-33) Sodium Level 135 mmol/L (136-145) L Potassium Level 3.5 mmol/L (3.5-5.1) Chloride Level 98 mmol/L (98-107) Carbon Dioxide Level 27 mmol/L (21-32) Anion Gap 10 (6-14) Blood Urea Nitrogen 16 mg/dL (8-26) Creatinine 1.0 mg/dL (0.7-1.3) Estimated GFR (Cockcroft-Gault) 81.9 Glucose Level 115 mg/dL (70-99) H Calcium Level 9.3 mg/dL (8.5-10.1) Magnesium Level 2.1 mg/dL (1.8-2.4) Total Bilirubin 0.8 mg/dL (0.2-1.0) Direct Bilirubin 0.4 mg/dL (0.0-0.2) H Aspartate Amino Transferase (AST) 125 U/L (15-37) H Alanine Aminotransferase (ALT) 90 U/L (16-63) H Alkaline Phosphatase 195 U/L (46-116) H Creatine Kinase 34 U/L (39-308) L Troponin I Quantitative < 0.017 ng/mL (0-0.055) Total Protein 8.2 g/dL (6.4-8.2) Albumin 3.2 g/dL (3.4-5.0) L Lipase 78 U/L (73-393) Urine Collection Type Void Urine Color Janette Urine Clarity Hazy Urine pH 6.0 Urine Specific [employer] >=1.030 Urine Protein 100 mg/dl (NEG-TRACE) Urine Glucose (UA) 100 mg/dL (NEG) Urine Ketones (Stick) 15 mg/dL (NEG) Urine Blood Neg (NEG) Urine Nitrite Pos (NEG) Urine Bilirubin Mod (NEG) Urine Urobilinogen Dipstick 4 mg/dL (0.2 mg/dL) Urine Leukocyte Esterase Neg (NEG) Urine RBC Rare /HPF (0-2) Urine WBC 1-4 /HPF (0-4) Urine Squamous Epithelial Cells Few /LPF Urine Amorphous Sediment Present /HPF Urine Bacteria Few /HPF (0-FEW) Urine Mucus Marked /LPF Urine Opiates Screen Pos (NEG) Urine Methadone Screen Neg (NEG) Urine Barbiturates Neg (NEG) Urine Phencyclidine Screen Neg (NEG) Urine Amphetamine/Methamphetamine Pos (NEG) Urine Benzodiazepines Screen Neg (NEG) Urine Cocaine Screen Neg (NEG) Urine Cannabinoids Screen Pos (NEG) Urine Ethyl Alcohol Neg (NEG) (CASSIUS MCCORMICK MD) EKG EKG [] (CASSIUS MCCORMICK MD) Radiology/Procedures Radiology/Procedures [] (CASSIUS MCCORMICK MD) Radiology/Procedures Examination: CT LUMBAR SPINE WO CONTRAST History: SEVERE LOW BACK PAIN RADIATING DOWN BOTH LEGS TIMES 3 DAYS, NO INJURY Comparison/Correlation: 06/14/2012 CT abdomen and pelvis with contrast Findings: Axial images of the lumbar spine were obtained without contrast. Sagittal and coronal reformatted images were provided. Imaging was performed from the mid body of T11 to the distal sacrum. Alignment of the lumbar spine is normal. Vertebral body heights are unremarkable. Mild subchondral endplates process at S1 is present with spurring. Concentric disc bulge is evident at the L5-S1 level. Mild stranding is noted anterior to the L5-S1 disc. Minimal gas at the anterior aspect of this disc is noted. Small fluid collection at the anterior aspect of this disc is suspected measuring up to 1.9 cm longitudinal by 0.8 cm anteroposterior by 3.2 cm transverse. Stranding is noted about the proximal common iliac veins and common iliac arteries. Borderline effacement of the right exiting nerve root is evident at L5-S1. Exiting nerve roots at other levels of the lumbar spine and the very low thoracic spine are normal. Other intervertebral discs identified are also normal. Impression: Concentric disc bulge at L5-S1 with stranding and suggestive fluid collection along the anterior margin of the intervertebral disc. Findings of concern for discitis and abscess. Further evaluation with MRI lumbar spine without with contrast to considered if for further assessment. Borderline effacement of the right L5-S1 exiting nerve root. (DOLORES HICKS DO) Course & Med Decision Making Course & Med Decision Making Pertinent Labs and Imaging studies reviewed. (See chart for details) Dr. Hicks will make disposition of pt. [] (CASSIUS MCCORMICK MD) Course & Med Decision Making Dr. Hicks's note: Received patient at 6 AM. Agree with previous H&P. After the return of the imaging findings, patient was started on IV antibiotics, and consultation was made with the hospitalist service for admission/transfer to [place] given the availability of an MRI and neurosurgery if necessary. Further discussion with the patient, he reports his last use of injectable drugs was yesterday due to the back pain. He reports using a new needle every time that he uses injectable drugs. Denies re-use of the needle, denies "greasing" the needle by licking or any other method. (DOLORES HICKS DO) Final Impression Final Impression 1. Back Pain[]-Sciatica 2. Hx. MRSA 3. Hx. IV heroin use 4. Concern for abscess or discitis- CT and labs pending at time shift change- Dr Hicks will make disposition. (CASSIUS MCCORMICK MD) Final Impression L5-S1 discitis, possible abscess (DOLORES HICKS DO) Dragon Disclaimer Dragon Disclaimer This electronic medical record was generated, in whole or in part, using a voice recognition dictation system. (CASSIUS MCCORMICK MD) CASSIUS MCCORMICK MD Feb 28, 2019 05:27 DOLORES HICKS DO Feb 28, 2019 08:12
[2019-02-28] MEDS ORDERED: IV RINGERS SOLUTION,LACTATED 1,000 ML IV SCH (06:00)
[2019-02-28] MEDS ORDERED: ORPHENADRINE CITRATE 60 MG/2 ML VIAL. IM ONE (06:15)
[2019-02-28] MEDS ORDERED: KETOROLAC 60 MG/2 ML VIAL. IM ONE (06:15)
[2019-02-28] MEDS ORDERED: methylPREDNISolone ACETATE 40 MG/ML VIAL. IM ONE (06:15)
[2019-02-28 06:52] LABS: BASO % 1 % (0-3); EOS % 0 % (0-3); HEMATOCRIT 44.6 % (39.0-53.0); HEMOGLOBIN 15.4 g/dL (13.0-17.5); LYMPH # 0.5 x10^3/uL (1.0-4.8); LYMPH % 5 % (24-48); MEAN CORPUSCULAR HEMOGLOBIN 30 pg (25-35); MEAN CORPUSCULAR HGB CONC 35 g/dL (31-37); MEAN CORPUSCULAR VOLUME 88 fL (79-100); MONO # 1.3 x10^3/uL (0.0-1.1); MONO % 13 % (0-9); NEUT # 8.1 x10^3uL (1.8-7.7); NEUT % 81 % (31-73); PLATELET COUNT 158 x10^3/uL (140-400); RED CELL DISTRIBUTION WIDTH 13.8 % (11.5-14.5)
[2019-02-28 07:14] LABS: ALBUMIN 3.2 g/dL (3.4-5.0); CALCIUM 9.3 mg/dL (8.5-10.1); DIRECT BILIRUBIN 0.4 mg/dL (0.0-0.2); GFR 81.9; MAGNESIUM 2.1 mg/dL (1.8-2.4); POTASSIUM 3.5 mmol/L (3.5-5.1); TOTAL BILIRUBIN 0.8 mg/dL (0.2-1.0); TOTAL PROTEIN 8.2 g/dL (6.4-8.2)
--- NOTE | 2019-02-28 07:43 | RAD ---
Examination: CT LUMBAR SPINE WO CONTRAST History: SEVERE LOW BACK PAIN RADIATING DOWN BOTH LEGS TIMES 3 DAYS, NO INJURY Comparison/Correlation: 06/14/2012 CT abdomen and pelvis with contrast Findings: Axial images of the lumbar spine were obtained without contrast. Sagittal and coronal reformatted images were provided. Imaging was performed from the mid body of T11 to the distal sacrum. Alignment of the lumbar spine is normal. Vertebral body heights are unremarkable. Mild subchondral endplates process at S1 is present with spurring. Concentric disc bulge is evident at the L5-S1 level. Mild stranding is noted anterior to the L5-S1 disc. Minimal gas at the anterior aspect of this disc is noted. Small fluid collection at the anterior aspect of this disc is suspected measuring up to 1.9 cm longitudinal by 0.8 cm anteroposterior by 3.2 cm transverse. Stranding is noted about the proximal common iliac veins and common iliac arteries. Borderline effacement of the right exiting nerve root is evident at L5-S1. Exiting nerve roots at other levels of the lumbar spine and the very low thoracic spine are normal. Other intervertebral discs identified are also normal. Impression: Concentric disc bulge at L5-S1 with stranding and suggestive fluid collection along the anterior margin of the intervertebral disc. Findings of concern for discitis and abscess. Further evaluation with MRI lumbar spine without with contrast to considered if for further assessment. Borderline effacement of the right L5-S1 exiting nerve root. PQRS Compliance Statement: One or more of the following individualized dose reduction techniques were utilized for this examination: 1. Automated exposure control 2. Adjustment of the mA and/or kV according to patient size 3. Use of iterative reconstruction technique Electronically signed by: Ke Lees MD (02/28/2019 7:40 AM) [facility]
[2019-02-28 08:01] LABS: SEDIMENTATION RATE 59 (0-15)
[2019-02-28] MEDS ORDERED: VANCOMYCIN PER PHARMACY MC STA (08:08)
[2019-02-28] MEDS ORDERED: VANCOMYCIN 1 GM VIAL. ONE ×2 (08:22→08:24)
[2019-02-28] MEDS ORDERED: IV NORMAL SALINE 500ML 0 ML ONE (08:22)
[2019-02-28] MEDS ORDERED: IV NORMAL SALINE 100ML 100 ML ONE (08:23)
[2019-02-28] MEDS ORDERED: VANCOMYCIN 2 GM in IV NORMAL SALINE 500ML 500 ML IV ONE (08:30)
[2019-02-28] MEDS ORDERED: IV NORMAL SALINE 500ML 500 ML IV ONE (09:00)
[2019-02-28 11:07] LABS: AMPHETAMINE/METHAMPHETAMINE POS (NEG); BARBITURATES NEG (NEG); BENZODIAZEPINES NEG (NEG); CANNABINOIDS POS (NEG); COCAINE NEG (NEG); METHADONE NEG (NEG); OPIATES POS (NEG); PHENCYCLIDINE NEG (NEG)
[2019-02-28 11:14] LABS: BILIRUBIN,URINE MOD (NEG); CLARITY,URINE HAZY; COLOR,URINE AMBER; GLUCOSE,URINE 100 mg/dL (NEG)
[2019-02-28 11:15] LABS: AMORPHOUS SEDIMENT,UR PRESENT /HPF; BACTERIA,URINE FEW /HPF (0-FEW); NITRITE,URINE POS (NEG); RBC,URINE RARE /HPF (0-2); SQUAMOUS EPITHELIAL CELL,UR FEW /LPF; UROBILINOGEN,URINE 4 mg/dL (0.2 mg/dL)
[2019-02-28 11:39] VITALS: BP 119/73
== END 2019-02-28 12:45 | disposition short-term general hospital (02) ==
LOC: ER 05:25
DX: M54.42 Lumbago with sciatica, left side (principal); M54.41 Lumbago with sciatica, right side; F17.210 Nicotine dependence, cigarettes, uncomplicated; F11.10 Opioid abuse, uncomplicated; Z86.14 Personal history of Methicillin resistant Staphylococcus aureus infection; Z88.2 Allergy status to sulfonamides; Z88.5 Allergy status to narcotic agent; Z91.041 Radiographic dye allergy status
CPT/HCPCS: 36415; 72131; 80048; 80076; 80307; 81001; 82550; 83690; 83735; 84484; 85025; 85610; 85651; 85730; 87040; 87086; 87205; 96361; 96365; 96366; 96367; 96372; 96375; 96376; 99285; J0696; J1030; J1885; J2360; J3010; J3370; J7040; J7120; 87077

== ENCOUNTER 2019-03-14 07:35 | Emergency (ER) | payer SELFPAY ==
[~2019-03-14] VITALS: Ht 177.8 cm; Wt 84.0 kg
[2019-03-14 07:40] VITALS: BP 112/51
[2019-03-14] MEDS ORDERED: KETOROLAC 60 MG/2 ML VIAL. IM ONE (07:56)
[2019-03-14] MEDS ORDERED: diazePAM 5 MG TABLET ONE (07:56)
[2019-03-14] MEDS: KETOROLAC 30 MG/ML VIAL. IM ONE (08:00)
[2019-03-14] MEDS: diazePAM 5 MG TABLET PO ONE (08:00)
--- NOTE | 2019-03-14 08:01 | PHYS DOC ---
Past History Past Medical History: Pneumonia, Other Past Surgical History: Other Smoking: Cigarettes Alcohol Use: None Drug Use: Heroin, Marijuana, Methamphetamine, Opiates Adult General Chief Complaint Chief Complaint: BACK PAIN OR INJURY HPI HPI Patient is a 43-year-old male with history of IV drug abuse who was brought in by ambulance apparently he got pulled over by the police he began to complain of back spasms starts on the left moves to the right radiates down the right leg symptoms for 4 days slowly worsening with time has not tried anything for relief . No other exacerbating factors Review of Systems Review of Systems Constitutional: Denies fever or chills [] Eyes: Denies change in visual acuity, redness, or eye pain [] HENT: Denies nasal congestion or sore throat [] Respiratory Denies bowel or bladder incontinence Musculoskeletal: Integument: Denies rash or skin lesions [] Neurologic: Denies headache, focal weakness or sensory changes [] Endocrine: Denies polyuria or polydipsia [] All other systems were reviewed and found to be within normal limits, except as documented in this note. Current Medications Current Medications Current Medications Medications (Trade) Dose Ordered Sig/Mercedes Start Time Stop Time Status Last Admin Dose Admin Diazepam (Valium) 5 mg STK-MED ONCE 03/14/19 07:56 03/14/19 07:57 DC Ketorolac Tromethamine (Toradol 30mg Vial) 30 mg 1X ONCE 03/14/19 08:15 03/14/19 08:16 Ketorolac Tromethamine (Toradol Im) 60 mg STK-MED ONCE 03/14/19 07:56 03/14/19 07:57 DC Allergies Allergies Allergies Coded Allergies Type Severity Reaction Last Updated Verified Sulfa (Sulfonamide Antibiotics) Allergy Intermediate 08/25/16 Yes hydrocodone Allergy Intermediate gi upset 08/25/16 Yes morphine Allergy Intermediate gi upset 08/25/16 Yes I S O L A T I O N *CONTACT* Allergy Unknown 10/09/18 Yes Physical Exam Physical Exam Constitutional: Well developed, well nourished, no acute distress, non-toxic appearance. [] HENT: Normocephalic, atraumatic, bilateral external ears normal, oropharynx moist, no oral exudates, nose normal. [] Eyes: PERRLA, EOMI, conjunctiva normal, no discharge. [] Neck: Normal range of motion, no tenderness, supple, no stridor. [] Pulmonary: Normal respiratory effort no increased work of breathing no obvious chest wall trauma Abdomen: Bowel sounds normal, soft, no tenderness, no masses, no pulsatile tressa s. [] Skin: Warm, dry, no erythema, no rash. [] Back: Patient has paraspinous tenderness to palpation bilaterally left greater than right reproducible pain and tenderness with twisting to the left Extremities: No tenderness, no cyanosis, no clubbing, ROM intact, no edema. [] Neurologic: Alert and oriented X 3, normal motor function possible some breakaway weakness in the right lower extremity exam is somewhat limited by p atient cooperation but no obvious focal weakness, normal sensory function, no focal deficits noted. [] Psychologic: Affect normal, judgement normal, mood normal. [] Current Patient Data Vital Signs Vital Signs Date Time Temp Pulse Resp B/P (MAP) Pulse Ox O2 Delivery O2 Flow Rate FiO2 03/14/19 07:40 98.4 105 16 100 Room Air EKG EKG [] Radiology/Procedures Radiology/Procedures [] Course & Med Decision Making Course & Med Decision Making Pertinent Labs and Imaging studies reviewed. (See chart for details) []43-year-old male history of IV drug abuse presenting with back spasms after being pulled over a traffic stop. Likely the patient did have a extensive workup in the last 10 days or so over at [facility] to include an MRI of the lumbar spine that did show herniated disc with no evidence of discitis or osteomyelitis or epidural abscess. He had a full neurosurgical consultation as well at this point in time patient is neurologically intact we treated symptomatically with Toradol and Valium does have palpable spasm I suspect he is having a symptomatic herniated disc but at this point he is medically cleared discharged to custody Dragwill Disclaimer Dragwill Disclaimer This electronic medical record was generated, in whole or in part, using a voice recognition dictation system. Departure Departure: Impression: Primary Impression: Back pain Disposition: HOME, SELF-CARE Condition: STABLE Referrals: PCP,NO (PCP) Patient Instructions: Back Pain, Adult, [id number] GENOVEVA PURDY MD March 14, 2019 08:01
--- NOTE | 2019-03-14 08:34 | RAD ---
Three-view right rib detail series and PA view chest x-ray Clinical indications: Right rib pain. FINDINGS: No acute right rib fracture is evident. Chest x-ray demonstrates no acute lung infiltrate or pleural effusion or pulmonary edema or pneumothorax. The heart size and pulmonary vasculature and mediastinum and both laura are unremarkable. Old granulomatous disease is seen. IMPRESSION: No acute right rib fracture. No acute lung infiltrate. Electronically signed by: Braden Martinez MD (03/14/2019 8:31 AM) [place] [id number]
== END 2019-03-14 08:34 | disposition home or self-care (01) ==
LOC: ER 07:35
DX: S01.112A Laceration without foreign body of left eyelid and periocular area, initial encounter (principal); M62.830 Muscle spasm of back; R07.81 Pleurodynia; F17.210 Nicotine dependence, cigarettes, uncomplicated; Z88.2 Allergy status to sulfonamides; Z88.5 Allergy status to narcotic agent; Z91.041 Radiographic dye allergy status; W03.XXXA Other fall on same level due to collision with another person, initial encounter; Y93.02 Activity, running; Y92.89 Other specified places as the place of occurrence of the external cause; Y99.8 Other external cause status
CPT/HCPCS: 12011; 71101; 96372; 99284; J1885